=== PATIENT | female | born 1975 | race African-American/Black ===

== ENCOUNTER 2019-04-26 11:23 | Emergency (ER) | payer SELFPAY ==
[2019-04-26 12:20] LABS: #Basophils 0.1 thou/uL (0.0-0.2); #Eosinphils 0.1 thou/uL (0.0-0.7); #Lymphocytes 2.1 thou/uL (1.20-3.40); #Monocytes 0.9 thou/uL (0.11-0.59); #Neutrophils 7.9 thou/uL (1.40-6.50); %Basophils 0.6 % (0.0-1.0); %Eosinophils 0.9 % (0.0-10.0); %Lymphocytes 18.6 % (21.0-51.0); %Monocytes 8.4 % (0.0-10.0); %Neutrophils 71.5 % (42.0-75.0); Hemoglobin 12.1 g/dL (12.0-16.0); Mean Corpuscular HGB CONC 32.1 g/dL (32.0-36.0); Mean Corpuscular Volume 90.2 fL (78.0-98.0); Mean Platelet Volume 8.2 fL (7.4-10.4); Platelet Count 189 thou/uL (130-400); RBC Distribution Width 12.7 % (11.5-14.5); Red Blood Cell (RBC) Count 4.17 mill/uL (4.20-5.40)
[2019-04-26 12:25] LABS: BHCG - Serum POSITIVE (NEGATIVE); Pregs Control Background? CLEAR/WHITE (CLR/WHITE); Pregs Control Bar Appear? YES (CONTROL BAR)
[2019-04-26 13:02] LABS: Bilirubin Negative (Negative); Blood, Urine Negative (Negative); Clarity Clear (Clear); Glucose, Urine (Dipstick) Normal (Negative); Leukocyte 250 Leu/uL (Negative); Mucous/LPF Rare LPF (<2+); Nitrite Negative (Negative); Protein, Urine (Dipstick) Negative (Neg-Trace); RBC/HPF 0-3 HPF (0-3); Urobilinogen Normal mg/dL (Less than 2)
[2019-04-26 13:11] LABS: Bacteria/HPF Rare-Few HPF (None Seen)
--- NOTE | 2019-04-26 14:12 | ULT ---
OB ULTRASOUND: INDICATION: Vaginal bleeding with . FINDINGS: There is a gestational sac which measures up to 6 cm which has diameter indicating a 10-week 1-day ge stational age. A yolk sac is identified. No pole is seen. Maternal ovaries are identified and appear unremarkable. Color Doppler and spectral analysis demonst rates blood flow to both ovaries. IMPRESSION: A gestational sac size indicating a 10-week 1-day gestational age. No pole is identified. The re is a structure within this gestational sac which the technologist described as possible yolk sac, although this may be debris or artifact. Considerations include a loss of with no po le present. A blighted ovum/anembryonic is also a consideration, although a yolk sac would not be present with that diagnosis. There is no evidence of viable intrauterine gestation. Recomme nd serial HCG levels and close followup. POS: [facility]
[2019-04-28 09:24] LABS: Chlamydia by PCR Not Detected (NotDetected); GC by PCR Not Detected (NotDetected)
== END 2019-04-26 14:50 | disposition home or self-care (01) ==
LOC: ERS 11:23
DX: O20.0 Threatened abortion (principal); Z3A.10 10 weeks gestation of pregnancy
CPT/HCPCS: 36415; 76856; 81003; 81015; 84702; 84703; 85025; 86900; 86901; 87077; 87086; 87186; 87480; 87491; 87510; 87591; 87660

== ENCOUNTER 2019-05-02 08:21 | Emergency (ER) | payer SELFPAY ==
[2019-05-02 08:59] LABS: #Basophils 0.1 thou/uL (0.0-0.2); #Eosinphils 0.1 thou/uL (0.0-0.7); #Lymphocytes 1.6 thou/uL (1.20-3.40); #Monocytes 0.8 thou/uL (0.11-0.59); #Neutrophils 7.8 thou/uL (1.40-6.50); %Basophils 0.7 % (0.0-1.0); %Eosinophils 1.3 % (0.0-10.0); %Lymphocytes 15.8 % (21.0-51.0); %Monocytes 7.7 % (0.0-10.0); %Neutrophils 74.6 % (42.0-75.0); Hemoglobin 12.4 g/dL (12.0-16.0); Mean Corpuscular HGB CONC 32.9 g/dL (32.0-36.0); Mean Corpuscular Hemoglobin 29.5 pg (27.0-31.0); Mean Corpuscular Volume 89.8 fL (78.0-98.0); Mean Platelet Volume 7.8 fL (7.4-10.4); Platelet Count 199 thou/uL (130-400); RBC Distribution Width 12.8 % (11.5-14.5); Red Blood Cell (RBC) Count 4.21 mill/uL (4.20-5.40); White Blood Cell (WBC) Count 10.4 thou/uL (4.8-10.8)
[2019-05-02 09:12] LABS: Anion Gap 11 mmol/L (10-20); BUN (Urea Nitrogen) 11 mg/dL (7.0-18.7); Calc. Creatinine Clearance 0 mL/min (70-130); Calcium 8.9 mg/dL (7.8-10.44); Carbon Dioxide 23 mmol/L (22-29); Chloride 106 mmol/L (98-107); Estimated GFR-MDRD Greater than 90; Glucose 115 mg/dL (70-105); Potassium 4.2 mmol/L (3.5-5.1); Sodium 136 mmol/L (136-145)
--- NOTE | 2019-05-02 10:53 | ULT ---
PELVIC ULTRASOUND: INDICATION: . FINDINGS: There is a gestational sac in the endometrial cavity with measurements recorded at 5-6 cm which would indicate a gestational age of 10-12 weeks. A yolk sac is identified. A pole is not identified. No evidence of cardiac activity. The right ovary is identified and appears unremarkable. There are normal-appearing follicles. Color Doppler and spectral analysis demonstrate blood flow to the right ovary. The left ovary is not identified. A small amount of free fluid in the cul-de-sac. There is an echogenicity in the myometrium consistent with a fibroid measuring in the 3.5 cm range. IMPRESSION: There is evidence of an intrauterine gestational sac with yolk sac identified. A pole is not i dentified. Viability cannot be confirmed. Recommend serial HCG levels and close followup. POS: [place]
== END 2019-05-02 10:04 | disposition home or self-care (01) ==
LOC: ERS 08:21
DX: O20.0 Threatened abortion (principal); Z3A.10 10 weeks gestation of pregnancy
CPT/HCPCS: 36415; 76856; 80048; 84702; 85025; 86900; 86901

== ENCOUNTER 2019-05-23 09:56 | Emergency (ER) | payer SELFPAY ==
[2019-05-23 10:47] LABS: #Eosinphils 0.1 thou/uL (0.0-0.7); #Lymphocytes 1.6 thou/uL (1.20-3.40); #Monocytes 0.7 thou/uL (0.11-0.59); #Neutrophils 7.4 thou/uL (1.40-6.50); %Basophils 0.4 % (0.0-1.0); %Eosinophils 0.9 % (0.0-10.0); %Lymphocytes 15.8 % (21.0-51.0); %Monocytes 7.4 % (0.0-10.0); %Neutrophils 75.5 % (42.0-75.0); Hemoglobin 12.2 g/dL (12.0-16.0); Mean Corpuscular HGB CONC 31.7 g/dL (32.0-36.0); Mean Corpuscular Hemoglobin 28.8 pg (27.0-31.0); Mean Corpuscular Volume 90.7 fL (78.0-98.0); Mean Platelet Volume 7.6 fL (7.4-10.4); Platelet Count 215 thou/uL (130-400); RBC Distribution Width 12.9 % (11.5-14.5); Red Blood Cell (RBC) Count 4.24 mill/uL (4.20-5.40); White Blood Cell (WBC) Count 9.8 thou/uL (4.8-10.8)
--- NOTE | 2019-05-23 11:53 | ULT ---
Exam: Transabdominal pelvic ultrasound HISTORY: patient. Vaginal bleeding, heavy. Evaluate for products of conception. TECHNIQUE: Transabdominal imaging of the pelvis is performed. Right ovary is interrogated with graysc doris, color flow, Doppler imaging and spectral wave form analysis FINDINGS: Uterus is identified, without myometrial masses. Uterus measures 7.3 x 14.5 x 8.4 cm. Endometrium: Thickening with a slightly heterogeneous echotexture. No evidence of a gestational sac, yolk sac or pole. Endometrial diameter is 2.6 cm Right adnexa: No masses or fluid. Right ovary has a normal echotexture, measuring 2.1 x 3.5 x 2.1 cm Left adnexa: No masses or fluid. Left ovary is not appreciated Ovarian Doppler: There is vascular flow to the right ovary IMPRESSION: 1. No sonographic evidence of a gestational sac, yolk sac or pole. 2. Slightly heterogeneous, thickened endometrium. Findings may represent blood products within the en dometrial canal. Retained products of conception cannot be excluded. Follow-up ultrasound and serial beta hCG is recommended.
[2019-05-23 14:14] LABS: #Basophils 0.1 thou/uL (0.0-0.2); #Eosinphils 0.1 thou/uL (0.0-0.7); #Lymphocytes 2.5 thou/uL (1.20-3.40); #Monocytes 0.9 thou/uL (0.11-0.59); #Neutrophils 5.5 thou/uL (1.40-6.50); %Basophils 0.6 % (0.0-1.0); %Eosinophils 1.5 % (0.0-10.0); %Lymphocytes 27.4 % (21.0-51.0); %Neutrophils 60.6 % (42.0-75.0); Hemoglobin 11.6 g/dL (12.0-16.0); Mean Corpuscular Hemoglobin 29.5 pg (27.0-31.0); Mean Corpuscular Volume 89.5 fL (78.0-98.0); Mean Platelet Volume 7.6 fL (7.4-10.4); Platelet Count 206 thou/uL (130-400); RBC Distribution Width 12.8 % (11.5-14.5); Red Blood Cell (RBC) Count 3.93 mill/uL (4.20-5.40)
[2019-05-23] MEDS ORDERED: Misoprostol 200 MCG TAB VAG SCH (16:00)
[2019-05-23] MEDS ORDERED: HYDROcodone/Acetaminophen 5/325 mg Tablet ONE (16:06)
== END 2019-05-23 13:15 | disposition home or self-care (01) ==
LOC: ERS 09:56
DX: O03.4 Incomplete spontaneous abortion without complication (principal)
CPT/HCPCS: 36415; 76856; 84702; 85025; 86900; 86901; 90384; 93976; 96372; 96374

== ENCOUNTER 2019-05-23 18:35 | Emergency (ER) | payer SELFPAY ==
[2019-05-23 19:14] LABS: #Basophils 0.1 thou/uL (0.0-0.2); #Eosinphils 0.1 thou/uL (0.0-0.7); #Lymphocytes 1.3 thou/uL (1.20-3.40); #Monocytes 0.9 thou/uL (0.11-0.59); #Neutrophils 11.3 thou/uL (1.40-6.50); %Basophils 0.4 % (0.0-1.0); %Eosinophils 0.4 % (0.0-10.0); %Lymphocytes 9.7 % (21.0-51.0); %Monocytes 6.3 % (0.0-10.0); %Neutrophils 83.2 % (42.0-75.0); Mean Corpuscular HGB CONC 32.7 g/dL (32.0-36.0); Mean Corpuscular Hemoglobin 29.5 pg (27.0-31.0); Mean Corpuscular Volume 90.1 fL (78.0-98.0); Mean Platelet Volume 7.7 fL (7.4-10.4); Platelet Count 205 thou/uL (130-400); RBC Distribution Width 12.8 % (11.5-14.5); Red Blood Cell (RBC) Count 3.73 mill/uL (4.20-5.40); White Blood Cell (WBC) Count 13.6 thou/uL (4.8-10.8)
== END 2019-05-23 20:37 | disposition home or self-care (01) ==
LOC: ERS 18:35
DX: O03.4 Incomplete spontaneous abortion without complication (principal)
CPT/HCPCS: 36415; 96360; 96361